=== PATIENT | female | born 1955 | race Caucasian/White ===

== ENCOUNTER 2023-05-19 10:28 | Inpatient (IN) | payer MEDICARE, MEDICAID ==
[~2023-05-19] VITALS: Ht 160 cm; Wt 60.4 kg
[2023-05-19] VITALS (8 sets, daily range): BP systolic 111–162; BP diastolic 69–82; PULSE 63–67; RESP 19–24; TEMP 97.9–98.2; O2SAT 95–96
[2023-05-19] MEDS ORDERED: IBUP-1455 PO (14:18)
[2023-05-19] MEDS ORDERED: SUMA50TA2 PO (14:18)
[2023-05-19] MEDS ORDERED: PANT40T PO (14:18)
[2023-05-19] MEDS ORDERED: SERT-160 PO (14:18)
[2023-05-19] MEDS ORDERED: CARB100T4 PO (14:18)
[2023-05-19] MEDS ORDERED: METF-869 PO (14:18)
[2023-05-19] MEDS ORDERED: ATEN50TA PO (14:18)
[2023-05-19] MEDS ORDERED: ATOR20TA50 PO (14:18)
[2023-05-19] MEDS ORDERED: FLUT1AER17 PO (14:18)
[2023-05-19] MEDS ORDERED: ASPI-325 PO (14:18)
[2023-05-19] MEDS ORDERED: ALBU108A5 INH (14:18)
[2023-05-19] MEDS ORDERED: MORPHINE SULFATE INJ 2 MG/ml SYRG IV PRN (15:15)
[2023-05-19] MEDS ORDERED: ALBUTEROL SULF 2.5 MG/0.5ML(0.5%) NEB SOLN NEB PRN (15:15)
[2023-05-19] MEDS ORDERED: ONDANSETRON HCL 4 MG/2 ML VIAL IV PRN (15:15)
[2023-05-19] MEDS ORDERED: IPRATROPIUM BROM 0.5 MG/2.5ML INH SOL NEB PRN (15:15)
[2023-05-19] MEDS ORDERED: NITROGLYCERIN 0.4 MG SL TAB SL PRN (15:15)
[2023-05-19 16:45] LABS: Basophils # (auto) 0 10 ^3/uL (0-0.2); Basophils % (auto) 0.3 % (0.0-2.0); Eosinophils # (auto) 0 10 ^3/uL (0-0.8); Eosinophils % (auto) 0.1 % (0.0-7.0); Hematocrit 36.7 % (36.0-46.0); Hemoglobin 12.5 g/dL (12.2-16.2); Lymphocytes # (auto) 2.1 10 ^3/uL (0.4-5.4); Lymphocytes % (auto) 21.6 % (10.0-50.0); Mean Corpuscular Hemoglobin 30.4 pg (28.0-32.0); Mean Corpuscular Volume 89.3 fL (80.0-100.0); Monocytes # (auto) 0.6 10 ^3/uL (0-1.3); Monocytes % (auto) 6.5 % (0.0-12.0); Neutrophils # (auto) 6.9 10 ^3/uL (1.6-8.6); Neutrophils % (auto) 71.5 % (37.0-80.0); Red Blood Cells 4.11 10^6/uL (4.0-5.20); Red Cell Distribution Width 12.9 % (11.8-14.3); White Blood Cell 9.7 10^3/uL (4.4-10.8)
[2023-05-19 16:49] LABS: Chloride 103 mmol/L (98-107); Potassium 3.7 mmol/L (3.5-5.1); Sodium 137 mmol/L (136-145)
[2023-05-19 16:50] LABS: Anion Gap 4 (5-15); Calcium 9.7 mg/dL (8.7-10.4); Carbon Dioxide 30 mmol/L (20-30)
[2023-05-19 16:55] LABS: BUN/Creatinine Ratio 17.6 (10.0-20.0); Blood Urea Nitrogen 9 mg/dL (9-23); Glucose 81 mg/dL (74-106)
[2023-05-19 16:58] LABS: INR 1.03 (0.9-1.15); Partial Thromboplastin Time 29.4 SEC (24.5-34.5); Prothrombin Time 10.8 sec (9.3-11.8)
[2023-05-19] MEDS ORDERED: DEXTROSE (50%) 50ML SYRG IV PRN (17:15)
[2023-05-19] MEDS: ATENOLOL 25 MG TAB PO ONE (17:59)
[2023-05-19] MEDS: HYDROcodone-ACET 5/325MG TAB PO PRN (17:59)
[2023-05-19] MEDS: ALBUTEROL SULF 2.5 MG/0.5ML(0.5%) NEB SOLN NEB SCH (18:18)
[2023-05-19] MEDS: IPRATROPIUM BROM 0.5 MG/2.5ML INH SOL NEB SCH (18:18)
[2023-05-19] MEDS: BUDESONIDE (INHALATION) 0.5 MG/2 ML NEB NEB SCH (18:19)
[2023-05-19 19:40] LABS: Triglycerides 130 mg/dL (< 150)
[2023-05-19 19:41] LABS: LDL Cholesterol 88 mg/dL (< 100)
[2023-05-19 19:42] LABS: Cholesterol 159 mg/dL (< 200); HDL Cholesterol 54 mg/dL (40-59)
[2023-05-19] MEDS: ACETAMINOPHEN 500 MG TAB PO PRN (21:20)
[2023-05-19] MEDS: ATENOLOL 25 MG TAB PO SCH (21:21)
[2023-05-19] MEDS: DOXYCYCLINE 100 MG TAB/CAP PO SCH (21:21)
[2023-05-19] MEDS: ATORVASTATIN 20 MG TAB PO SCH (21:21)
[2023-05-19] MEDS: ACCU-CHEK COMFORT CURVE STRIP VI SCH (21:27)
[2023-05-19] MEDS: ENOXAPARIN SOD 100 MG/1 ML SYRINGE SC SCH (21:27)
[2023-05-19] MEDS: InsuLIN REG 1unit/0.01ml Soln (100units/ml) SC SCH (22:38)
[2023-05-20] VITALS (18 sets, daily range): BP systolic 121–159; BP diastolic 64–89; PULSE 55–68; RESP 17–26; TEMP 97.5–98.6; O2SAT 92–99
[2023-05-20] MEDS: MORPHINE SULFATE INJ 2 MG/ml SYRG IV PRN (08:52)
[2023-05-20] MEDS: ADENOSINE 48 MG in GIVE UN-DILUTED 0 ML IV ONE (09:59)
[2023-05-20] MEDS: REGADENOSON 0.4 MG/5 ML SYRG IV ONE ×2 (10:06→10:14)
[2023-05-20] MEDS: ASPirin 81 mg TAB PO SCH (11:21)
[2023-05-20] MEDS: LOSARTAN POTASSIUM 25 MG TAB PO SCH (11:36)
[2023-05-20] MEDS: methylPREDNISolone SOD SUCC 125 MG/2 ML VL IV SCH (12:26)
[2023-05-20] MEDS: IPRATROPIUM BROM 0.5 MG/2.5ML INH SOL NEB SCH (14:23)
[2023-05-20] MEDS: ALBUTEROL SULF 2.5 MG/0.5ML(0.5%) NEB SOLN NEB SCH (14:23)
[2023-05-21] VITALS (20 sets, daily range): BP systolic 129–146; BP diastolic 63–73; PULSE 58–84; RESP 17–24; TEMP 97.5–98.2; O2SAT 89–96
[2023-05-22] VITALS (18 sets, daily range): BP systolic 118–154; BP diastolic 52–84; PULSE 54–82; RESP 18–22; TEMP 97.8–98.6; O2SAT 93–100
[2023-05-23] VITALS (13 sets, daily range): BP systolic 135–171; BP diastolic 66–95; PULSE 58–97; RESP 14–24; TEMP 97–98.6; O2SAT 92–100
[2023-05-23] MEDS ORDERED: DOXY-448 PO (13:15)
[2023-05-23] MEDS ORDERED: PRED20TA2 PO (13:15)
== END 2023-05-23 18:00 | disposition home or self-care (01) | DRG 140 ==
LOC: UNDOADMIN 13:01 → TELE-EAST 13:01
PROVIDERS: ADMIT Nurse Practitioner Acute Care; ATTEND Nurse Practitioner Acute Care
DX: J44.1 Chronic obstructive pulmonary disease with (acute) exacerbation (principal); J96.21 Acute and chronic respiratory failure with hypoxia; I21.A1 Myocardial infarction type 2; R54 Age-related physical debility; I16.0 Hypertensive urgency; E11.9 Type 2 diabetes mellitus without complications; F17.210 Nicotine dependence, cigarettes, uncomplicated; E78.00 Pure hypercholesterolemia, unspecified; Z90.710 Acquired absence of both cervix and uterus; Z90.49 Acquired absence of other specified parts of digestive tract; Z82.5 Family history of asthma and other chronic lower respiratory diseases; Z88.5 Allergy status to narcotic agent; Z79.899 Other long term (current) drug therapy; Z79.82 Long term (current) use of aspirin
CPT/HCPCS: 36415; 70450; 71045; 78452; 80048; 80061; 82962; 83880; 84484; 85025; 85379; 85610; 85730; 93005; 93017; 93306; 94640; G0378; J0153; J1815